=== PATIENT | male | born 1935 | race Caucasian/White ===

== ENCOUNTER → 2018-01-15 | Outpatient (CLI) | payer MEDICARE ==
[2018-01-15 10:09] LABS: CREATININE SERUM 1.62 MG/DL (0.60-1.30)
--- NOTE | 2018-01-15 10:57 | Diagnostic Imaging Report ---
PROCEDURE: CT chest without contrast. TECHNIQUE: Multiple contiguous axial images were obtained through the chest without the use of intravenous contrast. INDICATION: Productive cough. Patient also sustained a recent fall and complains of anterior chest pain. FINDINGS: No mediastinal hematoma is identified. No pericardial or pleural fluid is detected. No definite axillary lymphadenopathy is seen. No definite hilar or mediastinal lymphadenopathy is seen. There are coronary arterial calcifications present. Parenchymal evaluation does show subpleural interstitial changes in the upper and lower lobes. No discrete mass is seen. No acute rib fracture or sternal fracture is seen. There is a compression deformity involving the T12 vertebral body; however, this may be chronic. The upper abdomen is unremarkable. IMPRESSION: Essentially unremarkable CT of the chest without contrast apart from chronic interstitial changes. No parenchymal contusion or mediastinal hematoma is seen. There is no pneumothorax. Dictated by: Dictated on workstation # [id number]
== END ==
LOC: RAD 09:33
PROVIDERS: ATTEND Nurse Practitioner Family
DX: R07.9 Chest pain, unspecified (principal); R05 Cough; R06.00 Dyspnea, unspecified; R91.1 Solitary pulmonary nodule; R60.9 Edema, unspecified; W19.XXXA Unspecified fall, initial encounter; M79.606 Pain in leg, unspecified
CPT/HCPCS: 36415; 71250; 82565; 84520

== ENCOUNTER → 2018-02-05 | Outpatient (CLI) | payer MEDICARE | LOC: RT 09:32 | PROVIDERS: ATTEND Nurse Practitioner Family | DX: R06.00 Dyspnea, unspecified (principal); R91.1 Solitary pulmonary nodule; R60.9 Edema, unspecified; W19.XXXA Unspecified fall, initial encounter | CPT/HCPCS: 94060; 94726; 94729 ==

== ENCOUNTER 2021-01-18 05:44 | Outpatient (CLI) | payer MEDICARE, MEDICAID ==
[~2021-01-18] VITALS: Ht 175.3 cm; Wt 100.0 kg
[2021-01-19] MEDS ORDERED: IRBE300T17 PO (14:08)
[2021-01-19] MEDS ORDERED: GLIM4TAB5 PO (14:08)
[2021-01-19] MEDS ORDERED: MTP25TSR PO (14:08)
== END 2021-01-19 14:11 | disposition home or self-care (01) ==
LOC: PREOP 05:44
PROVIDERS: ATTEND Specialist
DX: Z01.818 Encounter for other preprocedural examination (principal)

== ENCOUNTER 2021-01-22 08:55 | Day surgery (SDC) | payer MEDICARE, MEDICAID ==
[~2021-01-22] VITALS: Ht 175 cm; Wt 100.0 kg
[~2021-01-22 08:55] MED LIST: GLIM4TAB5 PO; IRBE300T17 PO; MTP25TSR PO
--- OUTSIDE RECORDS SUMMARY | 2021-01-22 09:02 | XMS REPORT ---
Author Author Stew Potts [facility] Address [address] [place], [place] [id number] Care Team Providers Care Manager Lsw Name Role Phone Shelia Potts PCP Allergies and Adverse Reactions Name Reaction Notes NO KNOWN DRUG ALLERGIES Plan of Treatment Planned Activity Comments Planned Date Planned Time Plan/Goal Severely hard of hearing, occasional dizziness, unsteady gait 05/16/2019 11:15 AM US CAROTID DUPLEX COMP/LELIA 03/08/2019 12:00 AM Medications Active Name Start Date Estimated Completion Date SIG Co mments Vitamin D3 125 mcg (5,000 unit) oral tablet 01/08/2020 take 2 tablets by oral route daily prednisone 20 mg oral tablet 05/12/2020 take 1-2 tab lets by oral route daily cyanocobalamin (vitamin B-12) 1,000 mcg oral tablet 06/02/2020 take 1 tablet by oral route daily GET THIS O T C PLEASE glimepiride 4 mg oral tablet 11/12/2020 ... TAKE 1 T ABLET BY MOUTH EVERY DAY irbesartan 300 mg oral tablet 11/12/2020 03/12/2021 .. . TAKE 1 TABLET BY MOUTH EVERY DAY NEED TO BE SEEN BY DR. CLOUD metoprolol tartrate 25 mg oral tablet 11/12/2020 05/11/2021 ... TAKE 1 TABLET BY MOUTH DAILY .... Name Start Date Expiration Date SIG Comments Lipitor 20 mg oral tablet take 1 tablet (20 mg) by oral route once daily at bedtime Tums 200 mg calcium (500 mg) oral tablet,chewable chew by oral route As needed Zantac 150 mg oral tablet take 1 tablet (150 mg) by oral route 2 times per day Zithromax Z-Dillon 250 mg oral tablet 04/15/2015 04/20/2015 take 2 tablets (500 mg) by oral route once daily for 1 day then 1 tablet (250 mg) by oral route once daily for 4 days metoprolol tartrate 100 mg oral tablet take 1.5 tablets by oral route once a day (in the evening) Suprep Bowel Prep Kit 17.5-3.13-1.6 gram oral recon soln 02/20/20 19 take as directed Discontinued Name Start Date Discontinued Date SIG Comments Patanol 0.1 % ophthalmic drops 04/15/2015 i nstill 1 drop into affected eye(s) by ophthalmic route 2 times per day non compliant Lopressor 50 mg oral tablet 04/15/2015 take 1 tablet (50 mg) by oral route 2 times per day with meals Non compliant cyanocobalamin (vitamin B-12) 1,000 mcg/mL injection solutio n 01/08/2020 06/02/2020 inject 1 milliliter daily START DAILY FOR TWO WEEKS THEN DIRECTED BY he will not do this will try otc oral Problem List Description Status Onset History of colon cancer Active 01/13/2016 Diabetes mellitus type II, controlled Active Hypertension Active Hypocalcemia Active 05/10/2019 Vital Signs Date Time BP-Sys(mm[Hg] BP-Briana(mm[Hg]) HR(bpm) RR(rpm) Temp WT HT HC BMI BSA BMI Percentile O2 Sat(%) 01/06/2021 11:21:00 AM 158 mm[Hg] 92 mm[Hg] 77 {beats}/min 18 rpm 97.7 F 221.312 lbs 69 in 32.6818 kg/m2 2.2107 m2 97 % 11/12/2020 11:23:00 AM 136 mm[Hg] 86 mm[Hg] 58 {beats}/min 18 rpm 97.9 F 222 lbs 69 in 32.78 kg/m2 2.21 m2 97 % 06/02/2020 3:06:00 PM 115 mm[Hg] 54 mm[Hg] 56 {beats}/min 18 rpm 98.4 F 221 lbs 69 in 32.64 kg/m2 2.2091 m2 96 % 01/06/2020 1:29:00 PM 122 mm[Hg] 82 mm[Hg] 54 {beats}/min 18 rpm 97.9 F 220 lbs 69 in 32.488 kg/m2 2.20 m2 96 % 05/09/2019 12:51:00 PM 140 mm[Hg] 84 mm[Hg] 80 {beats}/min 18 rpm 97.7 F 222 lbs 69 in 32.78 kg/m2 2.2141 m2 96 % 04/08/2019 2:13:00 PM 124 mm[Hg] 68 mm[Hg] 62 {beats}/min 22 rpm 97.9 F 228 lbs 69 in 33.6694 kg/m2 2.24 m2 94 % 03/06/2019 2:22:00 PM 120 mm[Hg] 70 mm[Hg] 65 {beats}/min 18 rpm 98.4 F 226 lbs 69 in 33.37 kg/m2 2.234 m2 95 % 02/19/2019 10:44:00 AM 187 mm[Hg] 85 mm[Hg] 58 {beats}/min 20 rpm 96.8 F 222.5 lbs 69 in 32.8572 kg/m2 2.22 m2 01/12/2016 1:39:00 PM 182 mm[Hg] 86 mm[Hg] 59 {beats}/min 20 rpm 97.4 F 244 lbs 69 in 36.03 kg/m2 2.3212 m2 05/01/2015 10:32:00 AM 46 {beats}/min 20 rpm 97.6 F 243 lbs 69 in 35.8845 kg/m2 2.32 m2 97 % 04/15/2015 10:14:00 AM 172 mm[Hg] 81 mm[Hg] 59 {beats}/min 22 rpm 243 lbs 69 in 35.88 kg/m2 2.3165 m2 04/08/2014 9:36:00 AM 162 mm[Hg] 79 mm[Hg] 56 {beats}/min 20 rpm 97.2 F 246 lbs 70 in 35.297 kg/m2 2.3476 m2 03/25/2014 10:12:00 AM 147 mm[Hg] 76 mm[Hg] 59 {beats}/min 20 rpm 97.2 F 245 lbs 70 in 35.15 kg/m2 2.34 m2 03/11/2014 8:38:00 AM 164 mm[Hg] 74 mm[Hg] 66 {beats}/min 20 rpm 97.8 F 245 lbs 70 in 35.1535 kg/m2 2.3428 m2 Social History Name Description Comments Tobacco Never smoker Alcohol Current every day History of Procedures Date Ordered Description Order Status 04/15/2015 12:00 AM ASSAY OF AMYLASE Reviewed 04/15/2015 12:00 AM ASSAY OF LIPASE Reviewed 04/15/2015 12:00 AM CARCINOEMBRYONIC ANTIGEN Reviewed 04/15/2015 12:00 AM CHEST X-RAY 2VW FRONTAL&LATL Reviewed 04/15/2015 12:00 AM COMPLETE CBC W/AUTO DIFF WBC Reviewed 04/15/2015 12:00 AM COMPREHEN METABOLIC PANEL Reviewed 05/01/2015 12:00 AM X-RAY EXAM OF ABDOMEN Reviewed 05/02/2015 6:57 AM URINALYSIS AUTO W/O SCOPE Reviewed 07/31/2015 12:[address] ABD & PELV 1/> REGNS Reviewed 07/31/2015 12:00 AM MICROBIOLOGY PROCEDURE Reviewed 03/08/2019 12:00 AM VITAMIN B-12 Returned 03/08/2019 12:00 AM COMPLETE CBC W/AUTO DIFF WBC Returned 03/08/2019 12:00 AM GLYCOSYLATED HEMOGLOBIN TEST Returned 03/08/2019 12:00 AM LIPID PANEL Returned 03/08/2019 12:00 AM ASSAY THYROID STIM HORMONE Returned 03/08/2019 12:00 AM COMPREHEN METABOLIC PANEL Returned 03/08/2019 12:00 AM ASSAY OF FREE THYROXINE Returned 04/01/2019 12:00 AM COLLECTION VENOUS BLOOD VENIPUNCTURE Rev iewed 04/06/2019 12:00 AM METABOLIC PANEL TOTAL CA Returned 04/06/2019 12:00 AM ASSAY OF PARATHORMONE Returned 04/08/2019 12:00 AM COLLECTION VENOUS BLOOD VENIPUNCTURE Rev iewed 04/05/2019 12:00 AM VITAMIN D 25 HYDROXY Returned 04/10/2019 12:00 AM METABOLIC PANEL TOTAL CA Returned 04/10/2019 12:00 AM VITAMIN D 25 HYDROXY Returned 04/10/2019 12:00 AM ASSAY OF PARATHORMONE Returned 05/09/2019 12:00 AM COLLECTION VENOUS BLOOD VENIPUNCTURE Rev iewed 01/06/2020 12:00 AM COMPLETE CBC W/AUTO DIFF WBC Returned 01/06/2020 12:00 AM COMPREHEN METABOLIC PANEL Returned 01/06/2020 12:00 AM GLYCOSYLATED HEMOGLOBIN TEST Returned 01/06/2020 12:00 AM ASSAY OF FREE THYROXINE Returned 01/06/2020 12:00 AM ASSAY THYROID STIM HORMONE Returned 01/06/2020 12:00 AM VITAMIN B-12 Returned 01/06/2020 12:00 AM VITAMIN D 25 HYDROXY Returned 01/06/2020 12:00 AM CARCINOEMBRYONIC ANTIGEN Returned 01/06/2020 12:00 AM COLLECTION VENOUS BLOOD VENIPUNCTURE Rev iewed 04/22/2020 12:00 AM COMPLETE CBC W/AUTO DIFF WBC Returned 04/22/2020 12:00 AM COMPREHEN METABOLIC PANEL Returned 04/22/2020 12:00 AM LIPID PANEL Returned 04/22/2020 12:00 AM GLYCOSYLATED HEMOGLOBIN TEST Returned 04/22/2020 12:00 AM VITAMIN B-12 Returned 04/22/2020 12:00 AM VITAMIN D 25 HYDROXY Returned 04/22/2020 12:00 AM COLLECTION VENOUS BLOOD VENIPUNCTURE Rev iewed 11/02/2020 12:00 AM LIPID PANEL Returned 11/02/2020 12:00 AM VITAMIN B-12 Returned 11/02/2020 12:00 AM CARCINOEMBRYONIC ANTIGEN Returned 11/02/2020 12:00 AM COMPLETE CBC W/AUTO DIFF WBC Returned 11/02/2020 12:00 AM GLYCOSYLATED HEMOGLOBIN TEST Returned 11/02/2020 12:00 AM COMPREHEN METABOLIC PANEL Returned 11/02/2020 12:00 AM COLLECTION VENOUS BLOOD VENIPUNCTURE Rev iewed 01/06/2021 12:00 AM REMOVAL IMPACTED CERUMEN INSTRUMENTATION UNILAT Reviewed Results Summary Date and Description Results 04/15/2015 11:00 AM GLUCOSE 314.0 mg/dLSODIUM 13 4.0 mmol/LPOTASSIUM 4.30 mmol/LCHLORIDE 100.0 mmol/LCO2 23.0 mmol/LBUN 11.0 mg/dLCREATININE 1.20 mg/dLSGOT/AST 26.0 IU/LSGPT/ALT 18.0 IU/LALK PHOS 75.0 IU/LTOTAL PROTEIN 7.0 g/dLALBUMIN 3.80 g/dLTOTAL BILI 0.40 mg/dLCALCIUM 9.40 mg/dLAGE 79 GFR NonAA 58 GFR AA 70 eGFR 58 eGFR AA* >60 AMYLASE 32 IU/LLIPASE 38.0 U/LWBC 10.4 RBC 4.66 HGB 14.80 g/dLHCT 42.70 %MCV 92.0 fLMCH 31.80 pgMCHC 34.70 g/dLRDW SD 42 RDW CV 12.50 %MPV 9.90 fLPLT 327 NRBC# 0.00 NRBC% 0.0 %NEUT 66.50 %%LYMP 23.80 %%MONO 7.40 %%EOS 2.0 %%BASO 0.30 %#NEUT 6.90 #LYMP 2.47 #MONO 0.77 #EOS 0.21 #BASO 0.03 MANUAL DIFF NOT IND CEA 2.30 ng/mL 05/02/2015 6:57 AM Clarity Ur CLEAR Color Ur -- ---- Glucose Ur-sCnc ++++ Bilirub Ur Ql Strip -VE Ketones Ur Ql Strip -VE Sp Gr Ur Qn 1020 Hgb Ur Ql Strip -VE pH Ur-LsCnc 6.0 Prot Ur Ql Strip -VE Urobilinogen Ur-mCnc -VE Nitrite Ur Ql Strip - VE WBC Est Ur Ql Strip -VE History Of Immunizations Not available. 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, including renny ulder 03/11/2014 Glycosuria 05/02/2015 Renal colic on left side 05/02/2015 History of renal stone 05/02/2015 History of colon cancer 01/13/2016 Hypocalcemia 05/10/2019 Squamous cell carcinoma of skin of upper limb, includi ng shoulder Mar 11 2014 8:47AM LLQ abdominal pain Apr 15 2015 10:32AM Hx of colon cancer, stage I Apr 15 2015 10:32AM Upper respiratory infection with cough and congestion Apr 15 2015 10:32AM Left Renal calculus May 01 2015 7:45AM Left History of renal stone May 01 2015 10:34AM Renal colic on left side May 01 2015 10:34AM Severe Glycosuria May 01 2015 10:34AM Hematuria Jul 31 2015 10:10AM History of colon cancer Jan 12 2016 3:06PM History of colon cancer Feb 19 2019 10:46AM History of peptic ulcer Feb 19 2019 10:46AM Dyspepsia Feb 19 2019 10:46AM Change in bowel habit Feb 19 2019 10:46AM Constipation Feb 19 2019 10:46AM [place] (hard of hearing) Mar 06 2019 2:28PM Weak Mar 06 2019 2:28PM Gait abnormality Mar 06 2019 2:28PM HTN (hypertension) Mar 06 2019 2:28PM HLD (hyperlipidemia) Mar 06 2019 2:28PM ASVD (arteriosclerotic vascular disease) Mar 06 2019 2:28PM History of colon cancer Mar 06 2019 2:28PM Diabetes mellitus type II, controlled Mar 06 2019 2:28PM Hypertension Mar 06 2019 2:28PM Hypertension Mar 08 2019 9:38AM History of colon cancer Mar 08 2019 9:38AM Diabetes mellitus type II, controlled Mar 08 2019 9:38AM Carotid artery disease Mar 08 2019 9:38AM Dyslipidemia Mar 08 2019 9:38AM Hypocalcemia Apr 05 2019 2:53PM [place] (hard of hearing) Apr 08 2019 2:15PM Weak Apr 08 2019 2:15PM Gait abnormality Apr 08 2019 2:15PM ASVD (arteriosclerotic vascular disease) carotid dx with out sx tia or cva Apr 08 2019 2:15PM History of colon cancer Apr 08 2019 2:15PM Diabetes mellitus type II, controlled Apr 08 2019 2:15PM Hypertension Apr 08 2019 2:15PM Hypocalcemia Apr 08 2019 2:15PM Vitamin D deficiency Apr 10 2019 5:55PM Hypocalcemia Apr 10 2019 5:55PM [place] (hard of hearing) May 09 2019 12:53PM Weak May 09 2019 12:53PM Gait abnormality May 09 2019 12:53PM HTN (hypertension) May 09 2019 12:53PM History of colon cancer May 09 2019 12:53PM Diabetes mellitus type II, controlled May 09 2019 12:53PM Hypertension May 09 2019 12:53PM Hypocalcemia May 09 2019 12:53PM Hypertension Jan 06 2020 2:40PM Diabetes mellitus Jan 06 2020 2:40PM Hyperlipemia Jan 06 2020 2:40PM History of colon cancer in adulthood Jan 06 2020 2:40PM History of colon cancer Jan 06 2020 1:30PM Diabetes mellitus type II, controlled Jan 06 2020 1:30PM Hypertension Jan 06 2020 1:30PM [place] (hard of hearing) Jan 06 2020 1:30PM HLD (hyperlipidemia) Jan 06 2020 1:30PM Abnormal reflexes Jan 06 2020 1:30PM Hypertension Apr 22 2020 8:34AM Diabetes mellitus type II, controlled Apr 22 2020 8:34AM Vitamin D deficiency Apr 22 2020 8:34AM Vitamin B 12 deficiency Apr 22 2020 8:34AM Anemia Apr 22 2020 8:34AM Anemia Apr 30 2020 9:54AM Vitamin B 12 deficiency Apr 30 2020 9:54AM History of colon cancer Apr 30 2020 9:54AM B12 deficiency Apr 29 2020 11:38AM History of colon cancer Apr 29 2020 11:38AM Diabetes mellitus type II, controlled Apr 29 2020 11:38AM Hypertension Apr 29 2020 11:38AM B12 deficiency Jun 02 2020 3:08PM Vitamin D deficiency Jun 02 2020 3:08PM History of colon cancer Jun 02 2020 3:08PM Hypocalcemia Jun 02 2020 3:08PM Diabetes mellitus type II, controlled Jun 02 2020 3:08PM Hypertension Jun 02 2020 3:08PM Diabetes mellitus type II, controlled Apr 30 2020 9:54AM History of colon cancer Nov 12 2020 11:24AM Hypocalcemia Nov 12 2020 11:24AM Diabetes mellitus type II, controlled Nov 12 2020 11:24AM Hypertension Nov 12 2020 11:24AM Cerumen debris on tympanic membrane, bilateral Jan 06 2021 1 1:25AM Payers Insurance Name Company Name Plan Name Plan Number Policy Number Gregory cy Group Number Start Date Medicare RHC Medicare RHC [id number] N/ A A[employer] Better Health - [facility] [employer] - [facility] [id number] N/A Medicare Part B Medicare Secondary [id number] Sunday, 2000 [id number] 2008 [place] [employer] [facility] [place] [facility] tance Prog [id number] N/A Medicare Part A Medicare Part A [id number] N/A Medicare Part A Medicare - Lab/Xray [id number] N/A Medicare Part B Medicare Of [place] [id number] N/A [employer] Better Health Aetna Better [facility] [id number] N/A History of Encounters Visit Date Visit Type Provider 01/06/2021 Office visit Shelia Potts APR N 11/12/[address] Rafat Cloud DO 11/02/2020 Laboratory Tracie Cox PERFUME MAKER 06/02/[address] Rafat Cloud DO 04/29/[address] Rafat Cloud DO 04/22/2020 Laboratory Malathi Reynolds PERFUME MAKER 01/06/[address] Rafat Cloud DO 05/09/[address] Rafat Cloud DO 04/08/[address] Rafat Cloud DO 04/01/2019 Laboratory Malathi Reynolds PERFUME MAKER 03/06/[address] Rafat Cloud DO 02/25/2019 Surgery Gary Kingston DO 02/19/2019 Office visit Gary Kingston DO 01/18/2016 Hospital Gary Kingston DO 01/12/2016 Office visit Gary Kingston DO 08/24/2015 [facility] Carlita Gomez MD 07/31/2015 Office visit Carlita Gomez MD 05/01/2015 Office visit Carlita Gomez MD 04/15/2015 Office visit Gary Kingston DO 04/08/2014 Procedures Gary Kingston DO 03/25/2014 Procedures Gary Kingston DO 03/11/2014 Procedures Gary Kingston DO 10/01/2012 Hospital Gary Kingston DO 09/18/2012 Office visit Gary Kingston DO 08/22/2011 Surgery Gary Kingston DO
[2021-01-22] MEDS: TETRACAINE 0.5% OPHTH SOLN 4 ML BTL (SINGLE DOSE ONLY) OU PRN ×2 (09:11→09:15)
[2021-01-22 09:12] VITALS: BP 180/92
[2021-01-22] MEDS ORDERED: PHENYLEPHRINE 10% OPHTH (NEO-SYN) 5 ML BTL OU PRN (09:15)
[2021-01-22] MEDS ORDERED: TROPICAMIDE 1% OPH SOLN (MYDRIACYL) 15 ML BTL OU PRN (09:15)
--- NOTE | 2021-01-22 09:57 | Ophthalmologist Pre-Op Note ---
Pre-Operative Progress Note H&P Reviewed The H&P was reviewed, patient examined and no changes noted. Date H&P Reviewed: Jan 22, 2021 Time H&P Reviewed: 09:40 Pre-Op Dx Secondary Cataract, Right Eye ROSALIA POWELL MD Jan 22, 2021 09:57
--- NOTE | 2021-01-22 09:57 | Ophthalmology Operative Report ---
YAG Capsulotomy PREOPERATIVE DIAGNOSIS: Secondary Cataract Left Eye POSTOPERATIVE DIAGNOSIS: Secondary Cataract Left Eye PROCEDURE: YAG Capsulotomy, left eye SURGEON: Stew Powell ANESTHESIA: Topical anesthesia COMPLICATIONS: None ESTIMATED BLOOD LOSS: Minimal DESCRIPTION OF PROCEDURE: After proper informed consent was obtained, the patient's, a 85 male left eye received one drop of Tropicamide and one drop of Tetracaine. The patient was then placed at the YAG laser and using a power of [3.2 ] millijoules and [ 21] bursts were used to fashion a central capsulotomy. The patient tolerated the procedure well without complications. STEW POWELL MD Jan 22, 2021 09:57
== END 2021-01-22 09:43 | disposition home or self-care (01) ==
LOC: SDC 08:55
PROVIDERS: ATTEND Specialist
DX: H26.492 Other secondary cataract, left eye (principal); I10 Essential (primary) hypertension; Z85.038 Personal history of other malignant neoplasm of large intestine